=== PATIENT | female | born 1990 | race American Indian/Alaskan Native ===

== ENCOUNTER 2021-12-12 07:51 | Outpatient (CLI) | payer OTHER, MEDICAID ==
[2021-12-12] MEDS ORDERED: LACTATED RINGERS 500 ML IV ONE (08:39)
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
[2021-12-12 12:49] VITALS: BP 108/59
== END 2021-12-12 12:50 | disposition home or self-care (01) ==
LOC: APU 07:51 → TRG 07:51
PROVIDERS: ATTEND Obstetrics & Gynecology
DX: Z34.93 Encounter for supervision of normal pregnancy, unspecified, third trimester (principal); Z3A.35 35 weeks gestation of pregnancy
CPT/HCPCS: 59025; 76815; 76819